=== PATIENT | female | born 1975 | race Caucasian/White ===

== ENCOUNTER → 2020-01-28 | Outpatient (CLI) | payer BC | LOC: M.MRI 08:25 | PROVIDERS: ATTEND Registered Nurse Diabetes Educator | DX: M51.16 Intervertebral disc disorders with radiculopathy, lumbar region (principal); M48.07 Spinal stenosis, lumbosacral region; M47.816 Spondylosis without myelopathy or radiculopathy, lumbar region ==

== ENCOUNTER → 2020-05-31 | Outpatient (CLI) | payer BC ==
[~2020-05-31] MED LIST: MOBIC15 MG PO; NAPROSYN500 M1 PO
--- NOTE | ~2020-05-31 | PAINCON ---
[address] [address] PAIN MANAGEMENT CONSULTATION Name: LATASHA MILLER Room: [facility]#: [id number] Admission: 05/31/20 Attend Phys: Minh Simmons MD Discharge: Date of : 75 Report #: [id number] THIS REPORT FOR: //name// cc: Carmelina Pulido Tammy RNP ~ CC: Minh Pulido NP DATE OF SERVICE: 05/31/2020 CHIEF COMPLAINT: Low back pain and left leg discomfort. HISTORY: The patient is a 44-year-old female who has been referred to the Pain Clinic for evaluation of back and leg pain. She has been having some problems with her back for about 1-1/2 years. At this juncture, she is experiencing a constant ache in the low back area. Notes that the pain does go down into her left leg to the level of the knee. She rates her pain as a 4/10 today. She does recount being bucked off a horse in 2007. Does recount in about 2014 doing some activities or some "chores." Since that time, she has continued to have pain and discomfort. She did undergo physical therapy for a month. Did not notice any significant improvement. Underwent chiropractic treatments for about 4 months. Did not notice any long-term benefit from that activity. Denies any bowel or bladder problems as a result of this back pain. Notes that her pain is worse when she is bending over. Also, it becomes problematic for sitting senior living. Notes pain improves somewhat with stretching. Describes it as a constant, aching, sharp discomfort. She is being treated for urinary tract infection. She is on antibiotics at this juncture. ALLERGIES: No known drug allergies. CURRENT MEDICATIONS: Naprosyn and oral antibiotic. PAST MEDICAL HISTORY: Generally good health. PAST SURGICAL HISTORY: Breast augmentation, 2005. SOCIAL HISTORY: She is self-employed. She is working. REVIEW OF SYSTEMS: Generally good health, headaches, and back pain. LABORATORY DATA: 1. MRI of the lumbar spine dated 01/28/2020, L2-L3, minimal disk bulge with no central spinal canal stenosis or neural foraminal stenosis. 2. L3-L4, minimal disk bulge with no central spinal canal stenosis. There is a small left foraminal disk protrusion without significant [place] [address] PAIN MANAGEMENT CONSULTATION Name: ANGELALATASHA CHAHAL [place] Room: [facility]#: [id number] Admission: 05/31/20 Attend Phys: Minh Simmons MD Discharge: Date of : 75 Report #: [id number] stenosis or definitive nerve root impingement. There is no right neural foraminal stenosis. 3. L4-L5, mild broad-based disk bulge with a small left paracentral annular fissure without an associated disk protrusion. No central spinal stenosis. There is mild bilateral inferior neural foraminal effacement secondary to the disk bulge, but no definitive nerve root impingement. Minor facet arthrosis. 4. L5-S1 disk narrowing with a mild disk bulge, with no central spinal canal stenosis. There are bilateral small foraminal disk protrusions and annular fissures with bilateral neural foraminal stenosis. The left foraminal disk protrusion appears to impinge slightly upon the left L5 nerve root as it exits the left neural foramen. A right foraminal disk protrusion is in contact with the left L5 nerve root. PAIN CLINIC ASSESSMENT/PQRS: 1. The patient is not being treated for osteoarthritis or rheumatoid arthritis. 2. Height 5 feet 6 inches, weight 144 pounds, BMI is 23.3. 3. Vital signs: Blood pressure is 90/59, heart rate 72, respiratory rate 16, room air saturation 95%, and temperature 98.7. 4. Pain intensity, 4/10. 5. Fall history: The patient has not fallen in the last 3 months. 6. Blood thinner. The patient is not on a blood thinning medication. 7. Hypertension. The patient is not being treated for hypertension. 8. Opioids greater than 6 weeks. The patient is not on opioid regimen. 9. Risk assessment tool, low for opioid use. 10. Functional assessment tool reviewed. 11. Recreational drug use: The patient denies. 12. Tobacco: The patient denies. 13. Alcohol. The patient denies frequent use of alcoholic beverages. PHYSICAL EXAMINATION: GENERAL: The patient is a well-developed, well-nourished white female. Appears her stated age. She is alert and oriented x 3. Her affect is appropriate. Speech is fluent. HEENT: Normocephalic, atraumatic. Extraocular eye muscles intact. Sclerae nonicteric. Mucous membranes are moist. NECK: Without adenopathy or JVD. HEART: Regular rate. LUNGS: Clear to auscultation. EXTREMITIES: Upper extremity muscle strength is judged to be 5/5 for the major muscle groups in the upper extremity. The patient has some pain in the lower portion of her back, pain in the L4-L5 paraspinous area. Also, has experienced pain that radiates down the left buttocks and the posterior portion in the L5-S1 dermatomal distribution. IMPRESSION: Lumbar radiculopathy with sciatica involving the left L5-S1 dermatomal distribution. [facility] [address] [place] [address] PAIN MANAGEMENT CONSULTATION Name: ANGELALATASHA Room: [facility]#: [id number] Admission: 05/31/20 Attend Phys: Minh Simmons MD Discharge: Date of : 75 Report #: [id number] RECOMMENDATIONS: We discussed treatment options with the patient. Risks and benefits of an epidural steroid injection were discussed. Possible complications of the procedure were reviewed. The patient is concluding the use of antibiotics for urinary tract infection. She will return to the Pain Clinic, at which time, she will then undergo an epidural steroid injection. We would like to thank you for letting us participate in her care. We hope she continues to improve. By: [id number]. Jose Simmons MD /nt
== END ==
LOC: M.PC 09:25
PROVIDERS: ATTEND Anesthesiology Pain Medicine
DX: M54.5 Low back pain (principal); M79.605 Pain in left leg

== ENCOUNTER → 2020-06-28 | Outpatient (CLI) | payer BC | END | disposition home or self-care (01) | LOC: M.PC 10:00 | PROVIDERS: ATTEND Anesthesiology Pain Medicine | DX: M54.16 Radiculopathy, lumbar region (principal); M54.42 Lumbago with sciatica, left side; G89.29 Other chronic pain; Z98.890 Other specified postprocedural states; Z79.899 Other long term (current) drug therapy ==